=== PATIENT | female | born 1970 | race Caucasian/White ===

== ENCOUNTER 2021-02-25 08:18 | Inpatient (IN) ==
[2021-02-25] MEDS ORDERED: Piperacillin/Tazobactam 3.375 GM in 0.9 % Sodium Chloride Mini Bag 100 ML IVPB ONE (11:05)
[2021-02-25 11:22] LABS: Basophils % 0.5 %; Eosinophils # 0.1 K/mcL (0.0-0.6); Eosinophils % 1.8 %; Hematocrit 31.9 % (35.3-44.9); Hemoglobin 10.8 g/dL (11.5-15.4); Immature Granulocytes % 0.2 % (0-4); Lymphocytes # 2.1 K/mcL (0.6-4.6); Lymphocytes % 37.7 %; Mean Corpuscular HGB Conc 33.9 g/dL (31.6-35.5); Mean Corpuscular Hemoglobin 30.9 pg (28.0-33.3); Mean Corpuscular Volume 91.4 fL (83.0-100.0); Mean Platelet Volume 9.5 fL (9.4-12.4); Monocytes # 0.3 K/mcL (0.0-1.3); Monocytes % 4.5 %; Neutrophils # 3.1 K/mcL (1.6-8.9); Platelet Count 194 K/mcL (140-400); Red Blood Count 3.49 M/mcL (3.82-4.97); Red Cell Distribution Width 14.4 % (11.5-14.5); Segmented Neutrophils % 55.3 %; White Blood Count 5.6 K/mcL (4.3-11.1)
[2021-02-25 11:49] LABS: BUN/Creatinine Ratio 16 (6-26); Blood Urea Nitrogen 10 mg/dL (6-20); Calcium 8.8 mg/dL (8.6-10.3); Carbon Dioxide 27 mEq/L (23-29); Chloride 105 mEq/L (98-107); Glucose 103 mg/dL (70-105); Osmolality,Calculated 283 (280-300); Potassium 3.3 mEq/L (3.5-5.1); Sodium 137 mEq/L (136-145); eGFR For African Americans > 60 (> 60); eGFR For Non-African Americans > 60 (> 60)
[2021-02-25 12:07] LABS: C-Reactive Protein < 5 mg/L (Less than 10)
[2021-02-25] MEDS ORDERED: MOM Conc 10 ML UD.LIQ PO PRN (12:58)
[2021-02-25] MEDS ORDERED: Mag Hydrox/Al Hydrox/Simeth 30 ML UDC PO PRN (12:58)
[2021-02-25] MEDS ORDERED: Naloxone 0.4 MG/ML INJ IVP PRN (12:58)
[2021-02-25] MEDS ORDERED: Gadolinium Contrast Agent (WT Based) IV PRN (13:05)
[2021-02-25] MEDS ORDERED: GADOBUTROL 30 MMOL/30 ML VIAL IVP ONE (13:58)
[2021-02-25] MEDS: Piperacillin/Tazobactam 3.375 GM in 0.9 % Sodium Chloride Mini Bag 100 ML IVPB SCH (20:49)
[2021-02-26] MEDS: Piperacillin/Tazobactam 3.375 GM in 0.9 % Sodium Chloride Mini Bag 100 ML IVPB SCH ×3 (05:03→23:26)
[2021-02-26 08:30] LABS: Hematocrit 33.2 % (35.3-44.9); Mean Corpuscular HGB Conc 33.1 g/dL (31.6-35.5); Mean Corpuscular Hemoglobin 30.6 pg (28.0-33.3); Mean Corpuscular Volume 92.5 fL (83.0-100.0); Mean Platelet Volume 10.1 fL (9.4-12.4); Platelet Count 201 K/mcL (140-400); Red Blood Count 3.59 M/mcL (3.82-4.97); Red Cell Distribution Width 14.3 % (11.5-14.5); White Blood Count 5.8 K/mcL (4.3-11.1)
[2021-02-26 08:46] LABS: BUN/Creatinine Ratio 16 (6-26); Blood Urea Nitrogen 12 mg/dL (6-20); C-Reactive Protein < 5 mg/L (Less than 10); Calcium 9.1 mg/dL (8.6-10.3); Carbon Dioxide 24 mEq/L (23-29); Chloride 107 mEq/L (98-107); Glucose 76 mg/dL (70-105); Osmolality,Calculated 283 (280-300); Potassium 3.7 mEq/L (3.5-5.1); Sodium 137 mEq/L (136-145); eGFR For African Americans > 60 (> 60); eGFR For Non-African Americans > 60 (> 60)
[2021-02-26] MEDS: *HR* Buprenorphine HCl 8 MG TAB.SUBL SL SCH ×2 (15:44→20:18)
[2021-02-27 00:37] LABS: Basophils % 0.3 %; Eosinophils # 0.2 K/mcL (0.0-0.6); Eosinophils % 2.7 %; Hemoglobin 11.2 g/dL (11.5-15.4); Immature Granulocytes % 0.2 % (0-4); Lymphocytes # 2.6 K/mcL (0.6-4.6); Lymphocytes % 41.3 %; Mean Corpuscular HGB Conc 33.9 g/dL (31.6-35.5); Mean Corpuscular Hemoglobin 31.3 pg (28.0-33.3); Mean Corpuscular Volume 92.2 fL (83.0-100.0); Mean Platelet Volume 9.7 fL (9.4-12.4); Monocytes # 0.4 K/mcL (0.0-1.3); Monocytes % 6.7 %; Platelet Count 196 K/mcL (140-400); Red Blood Count 3.58 M/mcL (3.82-4.97); Red Cell Distribution Width 14.5 % (11.5-14.5); Segmented Neutrophils % 48.8 %; White Blood Count 6.2 K/mcL (4.3-11.1)
[2021-02-27 00:51] LABS: BUN/Creatinine Ratio 17 (6-26); Blood Urea Nitrogen 14 mg/dL (6-20); Calcium 8.6 mg/dL (8.6-10.3); Carbon Dioxide 27 mEq/L (23-29); Chloride 103 mEq/L (98-107); Glucose 130 mg/dL (70-105); Osmolality,Calculated 284 (280-300); Potassium 3.4 mEq/L (3.5-5.1); Sodium 136 mEq/L (136-145); eGFR For African Americans > 60 (> 60); eGFR For Non-African Americans > 60 (> 60)
[2021-02-27] MEDS: *HR* Enoxaparin 40 MG/0.4 ML SYRINGE SQ SCH (05:24)
[2021-02-27] MEDS ORDERED: *HR* OxyCODONE Immed Rel 15 MG TABLET PO ONE (05:40)
[2021-02-27] MEDS: *HR* Buprenorphine HCl 8 MG TAB.SUBL SL SCH ×2 (08:58→20:52)
[2021-02-27] MEDS: Piperacillin/Tazobactam 3.375 GM in 0.9 % Sodium Chloride Mini Bag 100 ML IVPB SCH ×2 (08:58→16:43)
[2021-02-27] MEDS: Ondansetron ODT 4 MG TAB.RAPDIS SL PRN (14:49)
[2021-02-27] MEDS ORDERED: Acetaminophen 325 MG TABLET PO ONE (15:29)
[2021-02-28] MEDS: Piperacillin/Tazobactam 3.375 GM in 0.9 % Sodium Chloride Mini Bag 100 ML IVPB SCH ×2 (01:48→08:14)
[2021-02-28 06:02] LABS: Basophils % 0.4 %; Eosinophils # 0.2 K/mcL (0.0-0.6); Eosinophils % 2.9 %; Hematocrit 33.1 % (35.3-44.9); Hemoglobin 10.7 g/dL (11.5-15.4); Immature Granulocytes % 0.2 % (0-4); Lymphocytes # 2.7 K/mcL (0.6-4.6); Lymphocytes % 48.7 %; Mean Corpuscular HGB Conc 32.3 g/dL (31.6-35.5); Mean Corpuscular Hemoglobin 30.1 pg (28.0-33.3); Mean Corpuscular Volume 93.2 fL (83.0-100.0); Mean Platelet Volume 9.9 fL (9.4-12.4); Monocytes # 0.5 K/mcL (0.0-1.3); Monocytes % 9.5 %; Neutrophils # 2.2 K/mcL (1.6-8.9); Platelet Count 186 K/mcL (140-400); Red Blood Count 3.55 M/mcL (3.82-4.97); Red Cell Distribution Width 14.2 % (11.5-14.5); Segmented Neutrophils % 38.3 %; White Blood Count 5.6 K/mcL (4.3-11.1)
[2021-02-28 06:16] LABS: BUN/Creatinine Ratio 19 (6-26); Blood Urea Nitrogen 17 mg/dL (6-20); Calcium 8.5 mg/dL (8.6-10.3); Carbon Dioxide 25 mEq/L (23-29); Chloride 106 mEq/L (98-107); Glucose 96 mg/dL (70-105); Osmolality,Calculated 283 (280-300); Potassium 4.2 mEq/L (3.5-5.1); Sodium 136 mEq/L (136-145); eGFR For African Americans > 60 (> 60); eGFR For Non-African Americans > 60 (> 60)
[2021-02-28] MEDS: *HR* Enoxaparin 40 MG/0.4 ML SYRINGE SQ SCH (06:46)
[2021-02-28] MEDS: *HR* Buprenorphine HCl 8 MG TAB.SUBL SL SCH ×2 (08:14→21:10)
[2021-02-28] MEDS: Ertapenem 1,000 MG in 0.9 % Sodium Chloride Mini Bag 100 ML IVPB SCH (15:19)
[2021-02-28 21:33] LABS: Barbiturates NEGATIVE ng/mL (Cutoff 50); Benzodiazepines NEGATIVE ng/mL (Cutoff 50); Cocaine NEGATIVE ng/mL (Cutoff 20); Methadone NEGATIVE ng/mL (Cutoff 25); Opiates NEGATIVE ng/mL (Cutoff 20); Phencyclidine NEGATIVE ng/mL (Cutoff 10)
[2021-03-01] MEDS: *HR* Enoxaparin 40 MG/0.4 ML SYRINGE SQ SCH (05:52)
[2021-03-01 06:31] LABS: Basophils % 0.4 %; Eosinophils # 0.2 K/mcL (0.0-0.6); Eosinophils % 3.4 %; Hematocrit 34.2 % (35.3-44.9); Hemoglobin 11.4 g/dL (11.5-15.4); Immature Granulocytes % 0.3 % (0-4); Lymphocytes # 3.4 K/mcL (0.6-4.6); Lymphocytes % 50.7 %; Mean Corpuscular HGB Conc 33.3 g/dL (31.6-35.5); Mean Corpuscular Hemoglobin 31.2 pg (28.0-33.3); Mean Corpuscular Volume 93.7 fL (83.0-100.0); Monocytes # 0.5 K/mcL (0.0-1.3); Monocytes % 7.8 %; Neutrophils # 2.5 K/mcL (1.6-8.9); Platelet Count 230 K/mcL (140-400); Red Blood Count 3.65 M/mcL (3.82-4.97); Red Cell Distribution Width 14.2 % (11.5-14.5); Segmented Neutrophils % 37.4 %; White Blood Count 6.7 K/mcL (4.3-11.1)
[2021-03-01 06:53] LABS: BUN/Creatinine Ratio 22 (6-26); Blood Urea Nitrogen 17 mg/dL (6-20); Carbon Dioxide 23 mEq/L (23-29); Chloride 105 mEq/L (98-107); Glucose 94 mg/dL (70-105); Osmolality,Calculated 281 (280-300); Potassium 4.3 mEq/L (3.5-5.1); Sodium 135 mEq/L (136-145); eGFR For African Americans > 60 (> 60); eGFR For Non-African Americans > 60 (> 60)
[2021-03-01 08:13] LABS: Amphetamines POSITIVE ng/mL (Cutoff 20); Buprenorphine POSITIVE ng/mL (Cutoff 1); Methamphetamines POSITIVE ng/mL (Cutoff 20)
[2021-03-01] MEDS: *HR* Buprenorphine HCl 8 MG TAB.SUBL SL SCH ×2 (08:13→21:14)
[2021-03-01 08:37] LABS: Amphetamine Screen,Urine Negative ng/mL (Cutoff=1000); Barbiturate Screen,Urine Negative ng/mL (Cutoff=200); Benzodiazepines Screen,Urine Negative ng/mL (Cutoff=300); Cannabinoid Screen,Urine Positive ng/mL (Cutoff = 50); Cocaine Screen,Urine Negative ng/mL (Cutoff= 300); Opiate Screen,Urine Negative ng/mL (Cutoff=300); Phencyclidine Screen,Urine Negative ng/mL (Cutoff=25)
[2021-03-01] MEDS: Ertapenem 1,000 MG in 0.9 % Sodium Chloride Mini Bag 100 ML IVPB SCH (15:43)
[2021-03-02] MEDS: *HR* Enoxaparin 40 MG/0.4 ML SYRINGE SQ SCH (05:47)
[2021-03-02 07:06] LABS: BUN/Creatinine Ratio 24 (6-26); Blood Urea Nitrogen 18 mg/dL (6-20); Calcium 8.6 mg/dL (8.6-10.3); Carbon Dioxide 27 mEq/L (23-29); Chloride 106 mEq/L (98-107); Glucose 94 mg/dL (70-105); Osmolality,Calculated 286 (280-300); Sodium 137 mEq/L (136-145); eGFR For African Americans > 60 (> 60); eGFR For Non-African Americans > 60 (> 60)
[2021-03-02] MEDS: *HR* Buprenorphine HCl 8 MG TAB.SUBL SL SCH ×2 (08:47→20:09)
[2021-03-02] MEDS: Ertapenem 1,000 MG in 0.9 % Sodium Chloride Mini Bag 100 ML IVPB SCH (16:13)
[2021-03-03 01:57] LABS: Basophils % 0.5 %; Eosinophils # 0.2 K/mcL (0.0-0.6); Eosinophils % 3.9 %; Immature Granulocytes % 0.2 % (0-4); Lymphocytes # 2.8 K/mcL (0.6-4.6); Lymphocytes % 47.3 %; Mean Corpuscular HGB Conc 32.4 g/dL (31.6-35.5); Mean Corpuscular Hemoglobin 30.6 pg (28.0-33.3); Mean Corpuscular Volume 94.7 fL (83.0-100.0); Mean Platelet Volume 9.6 fL (9.4-12.4); Monocytes # 0.5 K/mcL (0.0-1.3); Monocytes % 8.9 %; Neutrophils # 2.3 K/mcL (1.6-8.9); Platelet Count 223 K/mcL (140-400); Red Blood Count 3.59 M/mcL (3.82-4.97); Red Cell Distribution Width 14.1 % (11.5-14.5); Segmented Neutrophils % 39.2 %; White Blood Count 5.9 K/mcL (4.3-11.1)
[2021-03-03 02:12] LABS: BUN/Creatinine Ratio 18 (6-26); Blood Urea Nitrogen 17 mg/dL (6-20); Calcium 8.7 mg/dL (8.6-10.3); Carbon Dioxide 24 mEq/L (23-29); Chloride 104 mEq/L (98-107); Glucose 100 mg/dL (70-105); Osmolality,Calculated 286 (280-300); Potassium 3.7 mEq/L (3.5-5.1); Sodium 137 mEq/L (136-145); eGFR For African Americans > 60 (> 60); eGFR For Non-African Americans > 60 (> 60)
[2021-03-03] MEDS: *HR* Enoxaparin 40 MG/0.4 ML SYRINGE SQ SCH (07:50)
[2021-03-03] MEDS: *HR* Buprenorphine HCl 8 MG TAB.SUBL SL SCH ×2 (08:17→21:52)
[2021-03-03] MEDS: levoFLOXacin 750 MG/150 ML 750 MG/150 ML BAG IVPB SCH (15:18)
[2021-03-03] MEDS ORDERED: Lidocaine -MPF 1% 5 ML AMPUL INFILT ONE (18:25)
[2021-03-04] MEDS: Melatonin 3 MG TABLET PO PRN (05:11)
[2021-03-04] MEDS: *HR* Enoxaparin 40 MG/0.4 ML SYRINGE SQ SCH (05:12)
[2021-03-04] MEDS: *HR* Buprenorphine HCl 8 MG TAB.SUBL SL SCH ×2 (09:56→20:04)
[2021-03-04 13:14] LABS: Methylenedioxyamphetamine <20 ng/mL; Methylenedioxymethamphetamine <20 ng/mL
[2021-03-04] MEDS: levoFLOXacin 750 MG/150 ML 750 MG/150 ML BAG IVPB SCH (15:22)
[2021-03-04 15:50] LABS: Methamphetamine Confirmation 380 ng/mL; Methylenedioxyethylamphetamine <20 ng/mL
[2021-03-05] MEDS: Melatonin 3 MG TABLET PO PRN (00:48)
[2021-03-05] MEDS: Ondansetron ODT 4 MG TAB.RAPDIS SL PRN (00:48)
[2021-03-05 03:57] LABS: Basophils % 0.4 %; Eosinophils # 0.2 K/mcL (0.0-0.6); Hemoglobin 10.3 g/dL (11.5-15.4); Immature Granulocytes % 0.4 % (0-4); Lymphocytes # 1.8 K/mcL (0.6-4.6); Lymphocytes % 36.5 %; Mean Corpuscular HGB Conc 32.2 g/dL (31.6-35.5); Mean Corpuscular Volume 93.3 fL (83.0-100.0); Mean Platelet Volume 9.3 fL (9.4-12.4); Monocytes # 0.5 K/mcL (0.0-1.3); Monocytes % 10.6 %; Neutrophils # 2.3 K/mcL (1.6-8.9); Platelet Count 181 K/mcL (140-400); Red Blood Count 3.43 M/mcL (3.82-4.97); Red Cell Distribution Width 14.2 % (11.5-14.5); Segmented Neutrophils % 47.1 %; White Blood Count 4.8 K/mcL (4.3-11.1)
[2021-03-05 04:22] LABS: BUN/Creatinine Ratio 23 (6-26); Blood Urea Nitrogen 18 mg/dL (6-20); Calcium 8.8 mg/dL (8.6-10.3); Carbon Dioxide 25 mEq/L (23-29); Chloride 104 mEq/L (98-107); Glucose 95 mg/dL (70-105); Osmolality,Calculated 282 (280-300); Sodium 135 mEq/L (136-145); Vancomycin,Trough 33 mcg/mL (5-10); eGFR For African Americans > 60 (> 60); eGFR For Non-African Americans > 60 (> 60)
[2021-03-05] MEDS: *HR* Enoxaparin 40 MG/0.4 ML SYRINGE SQ SCH (06:13)
[2021-03-05] MEDS: *HR* Buprenorphine HCl 8 MG TAB.SUBL SL SCH (09:35)
[2021-03-05] MEDS ORDERED: Ertapenem 1,000 MG in 0.9 % Sodium Chloride Mini Bag 100 ML IVPB SCH (11:00)
[2021-03-05 16:50] LABS: Adenovirus Not Detected (Not Detect); Coronavirus 229E Not Detected (Not Detect); Coronavirus HKU1 Not Detected (Not Detect); Coronavirus NL63 Not Detected (Not Detect); Coronavirus OC43 Not Detected (Not Detect); Human Metapneumovirus Not Detected (Not Detect); Human Rhinovirus/Enterovirus Not Detected (Not Detect); Influenza A Subtype 2009 H1 Not Detected (Not Detect); SARS-CoV-2 Not Detected (Not Detect)
[2021-03-05 16:51] LABS: Bordetella Pertussis Not Detected (Not Detect); Chlamydophila pneumoniae Not Detected (Not Detect); Influenza B Not Detected (Not Detect); Mycoplasma pneumoniae Not Detected (Not Detect); Parainfluenza Virus 1 Not Detected (Not Detect); Parainfluenza Virus 2 Not Detected (Not Detect); Parainfluenza Virus 3 Not Detected (Not Detect); Parainfluenza Virus 4 Not Detected (Not Detect); Respiratory Syncytial Virus Not Detected (Not Detect)
[2021-03-05 17:16] LABS: Norbuprenorphine 4.3 ng/mL
[2021-03-05 17:35] LABS: Buprenorphine 2.5 ng/mL
[2021-03-05 20:00] VITALS: BP 124/82; PULSE 97; TEMP 97.6; O2SAT 94
== END 2021-03-05 20:15 | DRG 320 ==
LOC: EMEROOARM 08:18 → 3ANU 08:18 → SUATTDRO 13:00 → 3ANU 14:19 → SUATTDRO 02-26 11:46
PROVIDERS: ADMIT Pharmacist; ATTEND Family Medicine

== ENCOUNTER 2021-03-20 12:05 | Inpatient (IN) ==
[2021-03-20] MEDS ORDERED: Naloxone 0.4 MG/ML INJ IVP PRN (15:51)
[2021-03-20] MEDS ORDERED: Ondansetron 4 MG/2 ML VIAL IVP PRN (15:51)
[2021-03-20] MEDS ORDERED: Nicotine 2 MG GUM BC PRN (15:53)
[2021-03-20] MEDS ORDERED: MethylPREDNISolone 40 MG/ML VIAL IVP ONE (15:54)
[2021-03-20] MEDS ORDERED: Cetaphil Lotion 473 ML BOTTLE TP PRN (15:55)
[2021-03-20] MEDS ORDERED: 0.9 % Sodium Chloride 1,000 ML IVC SCH (16:00)
[2021-03-20] MEDS: Ertapenem 1,000 MG in 0.9 % Sodium Chloride Mini Bag 100 ML IVPB SCH (16:25)
[2021-03-20] MEDS: Nicotine 21 MG PATCH.TD24 TD SCH (16:32)
[2021-03-20] MEDS: DAPTOmycin 300 MG in 0.9 % Sodium Chloride 100 ML IVPB SCH (17:42)
[2021-03-20] MEDS: *HR* Buprenorphine HCl 8 MG TAB.SUBL SL SCH (19:59)
[2021-03-21] MEDS: Ammonium Lactate 30 APPL/225 GM BOTTLE TP PRN ×2 (04:29→17:12)
[2021-03-21] MEDS: *HR* Enoxaparin 40 MG/0.4 ML SYRINGE SQ SCH (05:22)
[2021-03-21 07:09] LABS: Basophils % 0.7 %; Eosinophils % 2.2 %; Hematocrit 30.2 % (35.3-44.9); Hemoglobin 10.1 g/dL (11.5-15.4); Immature Granulocytes % 0.7 % (0-4); Lymphocytes # 0.7 K/mcL (0.6-4.6); Lymphocytes % 51.8 %; Mean Corpuscular HGB Conc 33.4 g/dL (31.6-35.5); Mean Corpuscular Hemoglobin 30.1 pg (28.0-33.3); Mean Corpuscular Volume 90.1 fL (83.0-100.0); Monocytes # 0.1 K/mcL (0.0-1.3); Monocytes % 8.6 %; Neutrophils # 0.5 K/mcL (1.6-8.9); Platelet Count 192 K/mcL (140-400); Red Blood Count 3.35 M/mcL (3.82-4.97); Red Cell Distribution Width 14.8 % (11.5-14.5); White Blood Count 1.4 K/mcL (4.3-11.1)
[2021-03-21 07:25] LABS: Anisocytosis 1+ (Not Present); Platelet Estimate Normal (Normal)
[2021-03-21 07:28] LABS: Alanine Aminotransferase 25 Units/L (7-52); Albumin 3.2 g/dL (3.5-5.7); Albumin/Globulin Ratio 0.8 (1.1-2.2); Alkaline Phosphatase 26 Units/L (34-104); Aspartate Amino Transferase 33 Units/L (13-39); BUN/Creatinine Ratio 20 (6-26); Bilirubin,Total 0.3 mg/dL (0.3-1.0); Blood Urea Nitrogen 11 mg/dL (6-20); Calcium 8.5 mg/dL (8.6-10.3); Carbon Dioxide 20 mEq/L (23-29); Chloride 110 mEq/L (98-107); Creatine Kinase 125 Units/L (30-223); Globulin 3.9 g/dL (2.4-3.5); Glucose 120 mg/dL (70-105); Magnesium 1.9 mg/dL (1.6-2.6); Osmolality,Calculated 287 (280-300); Phosphorous 3.6 mg/dL (2.7-4.5); Sodium 138 mEq/L (136-145); Total Protein 7.1 g/dL (6.4-8.9); eGFR For African Americans > 60 (> 60); eGFR For Non-African Americans > 60 (> 60)
[2021-03-21] MEDS: *HR* Buprenorphine HCl 8 MG TAB.SUBL SL SCH ×2 (08:31→20:32)
[2021-03-21] MEDS: predniSONE 20 MG TABLET PO SCH (08:31)
[2021-03-21] MEDS: Nicotine 21 MG PATCH.TD24 TD SCH (08:33)
[2021-03-21] MEDS: Ertapenem 1,000 MG in 0.9 % Sodium Chloride Mini Bag 100 ML IVPB SCH (08:33)
[2021-03-21 09:57] LABS: C-Reactive Protein 13 mg/L (Less than 10)
[2021-03-21] MEDS: DAPTOmycin 300 MG in 0.9 % Sodium Chloride 100 ML IVPB SCH (17:06)
[2021-03-22] MEDS ORDERED: DiphenhydraMINE CREAM 28.4 GM TUBE TP PRN (03:40)
[2021-03-22] MEDS: *HR* Enoxaparin 40 MG/0.4 ML SYRINGE SQ SCH (04:48)
[2021-03-22 07:14] LABS: Hematocrit 29.7 % (35.3-44.9); Mean Corpuscular HGB Conc 33.7 g/dL (31.6-35.5); Mean Corpuscular Hemoglobin 30.7 pg (28.0-33.3); Mean Corpuscular Volume 91.1 fL (83.0-100.0); Mean Platelet Volume 11.7 fL (9.4-12.4); Platelet Count 152 K/mcL (140-400); Red Blood Count 3.26 M/mcL (3.82-4.97)
[2021-03-22 07:39] LABS: White Blood Count 4.6 K/mcL (4.3-11.1)
[2021-03-22 08:15] LABS: Eosinophils # 0.1 K/mcL (0.0-0.6); Monocytes # 0.5 K/mcL (0.0-1.3); Neutrophils # 1.8 K/mcL (1.6-8.9)
[2021-03-22 08:16] LABS: Anisocytosis 1+ (Not Present); Platelet Estimate Normal (Normal)
[2021-03-22] MEDS: predniSONE 20 MG TABLET PO SCH (08:16)
[2021-03-22] MEDS: *HR* Buprenorphine HCl 8 MG TAB.SUBL SL SCH ×2 (08:17→22:26)
[2021-03-22] MEDS: Ertapenem 1,000 MG in 0.9 % Sodium Chloride Mini Bag 100 ML IVPB SCH (08:18)
[2021-03-22] MEDS: Famotidine 20 MG TABLET PO SCH ×2 (08:18→22:26)
[2021-03-22] MEDS: Nicotine 21 MG PATCH.TD24 TD SCH (08:18)
[2021-03-22 14:13] LABS: BUN/Creatinine Ratio 30 (6-26); Blood Urea Nitrogen 19 mg/dL (6-20); Calcium 8.6 mg/dL (8.6-10.3); Carbon Dioxide 18 mEq/L (23-29); Chloride 111 mEq/L (98-107); Glucose 95 mg/dL (70-105); Osmolality,Calculated 292 (280-300); Potassium 3.7 mEq/L (3.5-5.1); Sodium 140 mEq/L (136-145); eGFR For African Americans > 60 (> 60); eGFR For Non-African Americans > 60 (> 60)
[2021-03-22 15:07] LABS: Hepatitis B Surface Antigen Nonreactive (Nonreactive)
[2021-03-22 15:36] LABS: HIV-1&2 Antibody & p24 Ag Nonreactive (Nonreactive); Hepatitis B Core IgM Nonreactive (Nonreactive)
[2021-03-22 15:38] LABS: Hepatitis A Antibody IgM Nonreactive (Nonreactive)
[2021-03-22 16:51] LABS: Hepatitis C Virus Antibody Reactive (Nonreactive)
[2021-03-22] MEDS: DAPTOmycin 300 MG in 0.9 % Sodium Chloride 100 ML IVPB SCH (17:53)
[2021-03-23 03:57] LABS: Basophils # 0.1 K/mcL (0.0-0.2); Eosinophils # 0.2 K/mcL (0.0-0.6); Hematocrit 30.9 % (35.3-44.9); Hemoglobin 9.7 g/dL (11.5-15.4); Immature Granulocytes % 0.2 % (0-4); Lymphocytes # 1.7 K/mcL (0.6-4.6); Lymphocytes % 36.2 %; Mean Corpuscular HGB Conc 31.4 g/dL (31.6-35.5); Mean Corpuscular Hemoglobin 29.3 pg (28.0-33.3); Mean Corpuscular Volume 93.4 fL (83.0-100.0); Mean Platelet Volume 10.2 fL (9.4-12.4); Monocytes # 0.5 K/mcL (0.0-1.3); Monocytes % 10.7 %; Neutrophils # 2.3 K/mcL (1.6-8.9); Platelet Count 203 K/mcL (140-400); Red Blood Count 3.31 M/mcL (3.82-4.97); Red Cell Distribution Width 14.9 % (11.5-14.5); Segmented Neutrophils % 47.9 %; White Blood Count 4.8 K/mcL (4.3-11.1)
[2021-03-23 04:11] LABS: BUN/Creatinine Ratio 25 (6-26); Blood Urea Nitrogen 18 mg/dL (6-20); Calcium 8.8 mg/dL (8.6-10.3); Carbon Dioxide 21 mEq/L (23-29); Chloride 108 mEq/L (98-107); Glucose 82 mg/dL (70-105); Osmolality,Calculated 289 (280-300); Potassium 3.9 mEq/L (3.5-5.1); Sodium 139 mEq/L (136-145); eGFR For African Americans > 60 (> 60); eGFR For Non-African Americans > 60 (> 60)
[2021-03-23 04:21] LABS: Anisocytosis 1+ (Not Present); Hypochromasia Present (Not Present); Platelet Estimate Normal (Normal); Reactive Lymphocytes Present (Not Present)
[2021-03-23 04:26] LABS: Estimated Average Glucose 131 mg/dl; Hemoglobin A1C 6.2 %
[2021-03-23] MEDS: *HR* Enoxaparin 40 MG/0.4 ML SYRINGE SQ SCH (06:37)
[2021-03-23] MEDS: Ertapenem 1,000 MG in 0.9 % Sodium Chloride Mini Bag 100 ML IVPB SCH (08:54)
[2021-03-23] MEDS: Famotidine 20 MG TABLET PO SCH ×2 (08:54→21:03)
[2021-03-23] MEDS: *HR* Buprenorphine HCl 8 MG TAB.SUBL SL SCH ×3 (08:54→22:10)
[2021-03-23] MEDS ORDERED: predniSONE 20 MG TABLET PO SCH (09:00)
[2021-03-23] MEDS: Nicotine 21 MG PATCH.TD24 TD SCH (09:19)
[2021-03-23] MEDS ORDERED: *HR* LORazepam 2 MG/ML VIAL IVP ONE ×2 (10:22→13:45)
[2021-03-23] MEDS ORDERED: 0.9 % Sodium Chloride 1,000 ML IVC ONE (14:04)
[2021-03-23] MEDS ORDERED: Gabapentin 300 MG CAPSULE PO ONE (14:52)
[2021-03-23] MEDS ORDERED: diazePAM 2 MG TABLET PO ONE (14:53)
[2021-03-23 15:04] LABS: Amphetamine Screen,Urine Negative ng/mL (Cutoff=1000); Barbiturate Screen,Urine Negative ng/mL (Cutoff=200); Benzodiazepines Screen,Urine Negative ng/mL (Cutoff=200); Cannabinoid Screen,Urine Positive ng/mL (Cutoff = 50); Cocaine Screen,Urine Negative ng/mL (Cutoff= 300); Opiate Screen,Urine Negative ng/mL (Cutoff=300); Phencyclidine Screen,Urine Negative ng/mL (Cutoff=25)
[2021-03-23] MEDS ORDERED: QUEtiapine Fumarate 25 MG TABLET PO STA (16:48)
[2021-03-23] MEDS ORDERED: Haloperidol Lactate 5 MG/ML VIAL IVP ONE (16:55)
[2021-03-23] MEDS ORDERED: Haloperidol Lactate 5 MG/ML VIAL IM ONE ×2 (17:04→23:59)
[2021-03-23] MEDS: DAPTOmycin 300 MG in 0.9 % Sodium Chloride 100 ML IVPB SCH (18:03)
[2021-03-23] MEDS ORDERED: Ziprasidone 10 MG, Closed System Device IM Kit 1 EACH in Water for inj. (sterile) 0.5 ML IM ONE (18:48)
[2021-03-23] MEDS ORDERED: *HR* HYDROmorphone (PF) 1 MG/ML SYRINGE IVP ONE ×2 (18:54→22:01)
[2021-03-23] MEDS ORDERED: Water for inj. (sterile) 10 ML ONE (19:05)
[2021-03-23] MEDS ORDERED: diazePAM 10 MG/2 ML SYRINGE IVP STA (19:46)
[2021-03-23] MEDS ORDERED: Melatonin 3 MG TABLET PO SCH (21:00)
[2021-03-23] MEDS ORDERED: QUEtiapine Fumarate 25 MG TABLET PO SCH (21:00)
[2021-03-23] MEDS ORDERED: *HR* LORazepam 2 MG/ML VIAL IVP STA (22:01)
[2021-03-23] MEDS: Budesonide/Formoterol 160/4.5 1 PUFF INH IH SCH ×2 (22:47→22:50)
[2021-03-23] MEDS ORDERED: diazePAM 10 MG/2 ML SYRINGE IVP ONE (23:57)
[2021-03-24 08:16] LABS: BUN/Creatinine Ratio 29 (6-26); Blood Urea Nitrogen 18 mg/dL (6-20); Calcium 8.2 mg/dL (8.6-10.3); Carbon Dioxide 25 mEq/L (23-29); Chloride 111 mEq/L (98-107); Glucose 87 mg/dL (70-105); Osmolality,Calculated 295 (280-300); Sodium 142 mEq/L (136-145); eGFR For African Americans > 60 (> 60); eGFR For Non-African Americans > 60 (> 60)
[2021-03-24] MEDS: Famotidine 20 MG TABLET PO SCH ×2 (09:59→21:02)
[2021-03-24] MEDS: *HR* Buprenorphine HCl 8 MG TAB.SUBL SL SCH ×2 (09:59→21:02)
[2021-03-24] MEDS: Ertapenem 1,000 MG in 0.9 % Sodium Chloride Mini Bag 100 ML IVPB SCH (10:00)
[2021-03-24] MEDS: Nicotine 21 MG PATCH.TD24 TD SCH (10:00)
[2021-03-24] MEDS ORDERED: Potassium Chloride Elixir 20 MEQ/15 ML UDC PO ONE (11:41)
[2021-03-24] MEDS: Ammonium Lactate 30 APPL/225 GM BOTTLE TP PRN (12:22)
[2021-03-24] MEDS: Budesonide/Formoterol 160/4.5 1 PUFF INH IH SCH ×2 (18:12→20:20)
[2021-03-24] MEDS: DAPTOmycin 300 MG in 0.9 % Sodium Chloride 100 ML IVPB SCH (18:12)
[2021-03-25] MEDS: 0.9 % Sodium Chloride 1,000 ML IVC SCH ×2 (03:03→09:11)
[2021-03-25 04:36] LABS: Basophils % 0.6 %; Eosinophils # 0.4 K/mcL (0.0-0.6); Eosinophils % 7.1 %; Hematocrit 35.4 % (35.3-44.9); Hemoglobin 11.7 g/dL (11.5-15.4); Immature Granulocytes % 0.9 % (0-4); Lymphocytes # 1.3 K/mcL (0.6-4.6); Mean Corpuscular HGB Conc 33.1 g/dL (31.6-35.5); Mean Corpuscular Hemoglobin 30.5 pg (28.0-33.3); Mean Corpuscular Volume 92.4 fL (83.0-100.0); Monocytes # 0.3 K/mcL (0.0-1.3); Monocytes % 4.9 %; Neutrophils # 3.3 K/mcL (1.6-8.9); Nucleated Red Blood Cells 0.4 /100 WBC (0); Platelet Count 252 K/mcL (140-400); Red Blood Count 3.83 M/mcL (3.82-4.97); Red Cell Distribution Width 15.2 % (11.5-14.5); Segmented Neutrophils % 62.5 %; White Blood Count 5.3 K/mcL (4.3-11.1)
[2021-03-25 04:47] LABS: BUN/Creatinine Ratio 19 (6-26); Blood Urea Nitrogen 16 mg/dL (6-20); Calcium 7.5 mg/dL (8.6-10.3); Carbon Dioxide 20 mEq/L (23-29); Chloride 107 mEq/L (98-107); Glucose 84 mg/dL (70-105); Osmolality,Calculated 284 (280-300); Potassium 3.7 mEq/L (3.5-5.1); Sodium 137 mEq/L (136-145); eGFR For African Americans > 60 (> 60); eGFR For Non-African Americans > 60 (> 60)
[2021-03-25] MEDS: Famotidine 20 MG TABLET PO SCH ×2 (09:05→20:54)
[2021-03-25] MEDS: Magnesium Oxide 400 MG TABLET PO SCH (09:05)
[2021-03-25] MEDS: Nicotine 21 MG PATCH.TD24 TD SCH (09:05)
[2021-03-25] MEDS: *HR* Buprenorphine HCl 8 MG TAB.SUBL SL SCH ×2 (09:05→20:54)
[2021-03-25] MEDS: Ertapenem 1,000 MG in 0.9 % Sodium Chloride Mini Bag 100 ML IVPB SCH (09:05)
[2021-03-25] MEDS: Budesonide/Formoterol 160/4.5 1 PUFF INH IH SCH (11:43)
[2021-03-25] MEDS: DAPTOmycin 300 MG in 0.9 % Sodium Chloride 100 ML IVPB SCH (17:32)
[2021-03-26] MEDS ORDERED: Ringers Solution, Lactated 500 ML IVC ONE (00:15)
[2021-03-26] MEDS: Budesonide/Formoterol 160/4.5 1 PUFF INH IH SCH ×3 (02:30→23:53)
[2021-03-26] MEDS: QUEtiapine Fumarate 25 MG TABLET PO PRN ×2 (03:36→19:59)
[2021-03-26 05:59] LABS: Basophils % 0.2 %; Eosinophils # 0.4 K/mcL (0.0-0.6); Eosinophils % 7.4 %; Hematocrit 31.4 % (35.3-44.9); Hemoglobin 10.6 g/dL (11.5-15.4); Immature Granulocytes % 1.7 % (0-4); Lymphocytes % 28.2 %; Mean Corpuscular HGB Conc 33.8 g/dL (31.6-35.5); Mean Corpuscular Hemoglobin 30.4 pg (28.0-33.3); Mean Platelet Volume 8.7 fL (9.4-12.4); Monocytes # 0.2 K/mcL (0.0-1.3); Monocytes % 3.6 %; Neutrophils # 2.8 K/mcL (1.6-8.9); Platelet Count 159 K/mcL (140-400); Red Blood Count 3.49 M/mcL (3.82-4.97); Segmented Neutrophils % 58.9 %; White Blood Count 4.8 K/mcL (4.3-11.1)
[2021-03-26 06:01] LABS: Lymphocytes # 1.4 K/mcL (0.6-4.6)
[2021-03-26 06:14] LABS: BUN/Creatinine Ratio 20 (6-26); Blood Urea Nitrogen 16 mg/dL (6-20); Calcium 7.6 mg/dL (8.6-10.3); Carbon Dioxide 24 mEq/L (23-29); Chloride 105 mEq/L (98-107); Glucose 118 mg/dL (70-105); Magnesium 2.1 mg/dL (1.6-2.6); Osmolality,Calculated 282 (280-300); Potassium 3.4 mEq/L (3.5-5.1); Sodium 135 mEq/L (136-145); eGFR For African Americans > 60 (> 60); eGFR For Non-African Americans > 60 (> 60)
[2021-03-26 06:26] LABS: Thyroid Stimulating Hormone 2.363 mcIU/mL (0.340-5.600)
[2021-03-26 06:28] LABS: Platelet Estimate Normal (Normal)
[2021-03-26] MEDS: Famotidine 20 MG TABLET PO SCH ×2 (09:25→19:59)
[2021-03-26] MEDS: Ertapenem 1,000 MG in 0.9 % Sodium Chloride Mini Bag 100 ML IVPB SCH (09:25)
[2021-03-26] MEDS: Nicotine 21 MG PATCH.TD24 TD SCH (09:25)
[2021-03-26] MEDS: *HR* Buprenorphine HCl 8 MG TAB.SUBL SL SCH ×2 (09:25→19:59)
[2021-03-26] MEDS: Magnesium Oxide 400 MG TABLET PO SCH (09:25)
[2021-03-26] MEDS: Clobetasol Propionate 0.05% 15 GM Cream Tube TP SCH ×2 (14:40→20:01)
[2021-03-26] MEDS: DAPTOmycin 300 MG in 0.9 % Sodium Chloride 100 ML IVPB SCH (18:09)
[2021-03-27 06:09] LABS: Basophils # 0.1 K/mcL (0.0-0.2); Basophils % 0.9 %; Eosinophils # 0.7 K/mcL (0.0-0.6); Eosinophils % 8.4 %; Hematocrit 31.3 % (35.3-44.9); Hemoglobin 10.6 g/dL (11.5-15.4); Immature Granulocytes % 1.2 % (0-4); Lymphocytes # 3.7 K/mcL (0.6-4.6); Lymphocytes % 45.1 %; Mean Corpuscular HGB Conc 33.9 g/dL (31.6-35.5); Mean Corpuscular Volume 88.7 fL (83.0-100.0); Mean Platelet Volume 10.4 fL (9.4-12.4); Monocytes # 0.4 K/mcL (0.0-1.3); Monocytes % 5.2 %; Neutrophils # 3.2 K/mcL (1.6-8.9); Platelet Count 155 K/mcL (140-400); Red Blood Count 3.53 M/mcL (3.82-4.97); Segmented Neutrophils % 39.2 %; White Blood Count 8.1 K/mcL (4.3-11.1)
[2021-03-27 06:40] LABS: Alanine Aminotransferase 21 Units/L (7-52); Alkaline Phosphatase 31 Units/L (34-104); Aspartate Amino Transferase 17 Units/L (13-39); BUN/Creatinine Ratio 21 (6-26); Bilirubin,Total 0.4 mg/dL (0.3-1.0); Blood Urea Nitrogen 14 mg/dL (6-20); Calcium 7.9 mg/dL (8.6-10.3); Carbon Dioxide 24 mEq/L (23-29); Chloride 102 mEq/L (98-107); Glucose 131 mg/dL (70-105); Magnesium 1.8 mg/dL (1.6-2.6); Osmolality,Calculated 278 (280-300); Potassium 4.5 mEq/L (3.5-5.1); Sodium 133 mEq/L (136-145); eGFR For African Americans > 60 (> 60); eGFR For Non-African Americans > 60 (> 60)
[2021-03-27] MEDS: Ertapenem 1,000 MG in 0.9 % Sodium Chloride Mini Bag 100 ML IVPB SCH (09:20)
[2021-03-27] MEDS: *HR* Buprenorphine HCl 8 MG TAB.SUBL SL SCH ×2 (09:21→20:02)
[2021-03-27] MEDS: Magnesium Oxide 400 MG TABLET PO SCH (09:21)
[2021-03-27] MEDS: Famotidine 20 MG TABLET PO SCH ×2 (09:21→20:02)
[2021-03-27] MEDS: Nicotine 21 MG PATCH.TD24 TD SCH (09:22)
[2021-03-27] MEDS: Clobetasol Propionate 0.05% 15 GM Cream Tube TP SCH ×2 (09:23→20:04)
[2021-03-27] MEDS ORDERED: predniSONE 10 MG TABLET PO ONE (11:14)
[2021-03-27] MEDS: Budesonide/Formoterol 160/4.5 1 PUFF INH IH SCH (11:43)
[2021-03-27] MEDS: DAPTOmycin 300 MG in 0.9 % Sodium Chloride 100 ML IVPB SCH (18:08)
[2021-03-27] MEDS: QUEtiapine Fumarate 25 MG TABLET PO PRN (20:02)
[2021-03-28] MEDS: Famotidine 20 MG TABLET PO SCH ×2 (09:53→22:15)
[2021-03-28] MEDS: Magnesium Oxide 400 MG TABLET PO SCH (09:53)
[2021-03-28] MEDS: QUEtiapine Fumarate 25 MG TABLET PO SCH ×2 (09:53→22:15)
[2021-03-28] MEDS: *HR* Buprenorphine HCl 8 MG TAB.SUBL SL SCH ×2 (09:53→22:15)
[2021-03-28] MEDS: Clobetasol Propionate 0.05% 15 GM Cream Tube TP SCH ×2 (09:54→22:21)
[2021-03-28] MEDS: Ertapenem 1,000 MG in 0.9 % Sodium Chloride Mini Bag 100 ML IVPB SCH (09:54)
[2021-03-28] MEDS: Budesonide/Formoterol 160/4.5 1 PUFF INH IH SCH ×3 (11:26→21:35)
[2021-03-28] MEDS: Nicotine 21 MG PATCH.TD24 TD SCH (12:02)
[2021-03-28] MEDS: DAPTOmycin 300 MG in 0.9 % Sodium Chloride 100 ML IVPB SCH (17:49)
[2021-03-29] MEDS: Ertapenem 1,000 MG in 0.9 % Sodium Chloride Mini Bag 100 ML IVPB SCH (08:32)
[2021-03-29] MEDS: Famotidine 20 MG TABLET PO SCH ×2 (08:33→21:16)
[2021-03-29] MEDS: Clobetasol Propionate 0.05% 15 GM Cream Tube TP SCH ×2 (08:33→21:17)
[2021-03-29] MEDS: Magnesium Oxide 400 MG TABLET PO SCH (08:33)
[2021-03-29] MEDS: *HR* Buprenorphine HCl 8 MG TAB.SUBL SL SCH ×2 (08:33→21:16)
[2021-03-29] MEDS: QUEtiapine Fumarate 25 MG TABLET PO SCH ×2 (08:33→21:16)
[2021-03-29 09:11] LABS: Hematocrit 31.5 % (35.3-44.9); Hemoglobin 10.3 g/dL (11.5-15.4); Mean Corpuscular HGB Conc 32.7 g/dL (31.6-35.5); Mean Corpuscular Hemoglobin 30.5 pg (28.0-33.3); Mean Corpuscular Volume 93.2 fL (83.0-100.0); Mean Platelet Volume 10.7 fL (9.4-12.4); Platelet Count 210 K/mcL (140-400); Red Blood Count 3.38 M/mcL (3.82-4.97); Red Cell Distribution Width 15.2 % (11.5-14.5)
[2021-03-29 09:12] LABS: White Blood Count 8.8 K/mcL (4.3-11.1)
[2021-03-29 09:16] LABS: BUN/Creatinine Ratio 24 (6-26); Blood Urea Nitrogen 17 mg/dL (6-20); Carbon Dioxide 26 mEq/L (23-29); Chloride 104 mEq/L (98-107); Glucose 104 mg/dL (70-105); Magnesium 1.7 mg/dL (1.6-2.6); Osmolality,Calculated 288 (280-300); Potassium 3.8 mEq/L (3.5-5.1); Sodium 138 mEq/L (136-145); eGFR For African Americans > 60 (> 60); eGFR For Non-African Americans > 60 (> 60)
[2021-03-29] MEDS: Budesonide/Formoterol 160/4.5 1 PUFF INH IH SCH ×2 (10:57→23:44)
[2021-03-29] MEDS: Nicotine 21 MG PATCH.TD24 TD SCH (10:57)
[2021-03-29] MEDS: DAPTOmycin 300 MG in 0.9 % Sodium Chloride 100 ML IVPB SCH (17:37)
[2021-03-30 07:21] LABS: ANA IgG by ELISA NONE DETECTED (None Detected)
[2021-03-30] MEDS: Famotidine 20 MG TABLET PO SCH ×2 (07:56→21:27)
[2021-03-30] MEDS: QUEtiapine Fumarate 25 MG TABLET PO SCH ×2 (07:56→21:27)
[2021-03-30] MEDS: Magnesium Oxide 400 MG TABLET PO SCH (07:56)
[2021-03-30] MEDS: *HR* Buprenorphine HCl 8 MG TAB.SUBL SL SCH ×2 (07:56→21:27)
[2021-03-30] MEDS: Nicotine 21 MG PATCH.TD24 TD SCH (07:57)
[2021-03-30] MEDS: Ertapenem 1,000 MG in 0.9 % Sodium Chloride Mini Bag 100 ML IVPB SCH (07:57)
[2021-03-30] MEDS: Clobetasol Propionate 0.05% 15 GM Cream Tube TP SCH ×2 (07:57→21:29)
[2021-03-30] MEDS: DAPTOmycin 300 MG in 0.9 % Sodium Chloride 100 ML IVPB SCH (17:57)
[2021-03-30] MEDS: Budesonide/Formoterol 160/4.5 1 PUFF INH IH SCH ×2 (17:58→21:17)
[2021-03-31] MEDS: Budesonide/Formoterol 160/4.5 1 PUFF INH IH SCH ×2 (08:30→22:17)
[2021-03-31] MEDS: Ertapenem 1,000 MG in 0.9 % Sodium Chloride Mini Bag 100 ML IVPB SCH (08:35)
[2021-03-31] MEDS: QUEtiapine Fumarate 25 MG TABLET PO SCH ×2 (08:36→20:25)
[2021-03-31] MEDS: Famotidine 20 MG TABLET PO SCH ×2 (08:36→20:25)
[2021-03-31] MEDS: *HR* Buprenorphine HCl 8 MG TAB.SUBL SL SCH ×2 (08:37→20:25)
[2021-03-31] MEDS: Nicotine 21 MG PATCH.TD24 TD SCH (08:37)
[2021-03-31] MEDS: Magnesium Oxide 400 MG TABLET PO SCH (08:37)
[2021-03-31] MEDS: DAPTOmycin 300 MG in 0.9 % Sodium Chloride 100 ML IVPB SCH (16:30)
[2021-03-31] MEDS: Clobetasol Propionate 0.05% 15 GM Cream Tube TP SCH (20:26)
[2021-04-01] MEDS: Clobetasol Propionate 0.05% 15 GM Cream Tube TP SCH ×2 (07:32→09:29)
[2021-04-01] MEDS: QUEtiapine Fumarate 25 MG TABLET PO SCH (09:28)
[2021-04-01] MEDS: *HR* Buprenorphine HCl 8 MG TAB.SUBL SL SCH (09:28)
[2021-04-01] MEDS: Ertapenem 1,000 MG in 0.9 % Sodium Chloride Mini Bag 100 ML IVPB SCH (09:28)
[2021-04-01] MEDS: Famotidine 20 MG TABLET PO SCH (09:28)
[2021-04-01] MEDS: Magnesium Oxide 400 MG TABLET PO SCH (09:28)
[2021-04-01] MEDS: Nicotine 21 MG PATCH.TD24 TD SCH (09:29)
[2021-04-01] MEDS: Budesonide/Formoterol 160/4.5 1 PUFF INH IH SCH (11:54)
[2021-04-01 14:33] LABS: Influenza A PCR Negative (Negative); Influenza B PCR Negative (Negative); Resp. Syncytial Virus PCR Negative (Negative)
[2021-04-01 15:20] LABS: SARS-CoV-2 by PCR (In House) Negative (Negative)
[2021-04-01 16:44] VITALS: BP 109/63; PULSE 82; TEMP 97.9; O2SAT 98
== END 2021-04-01 18:36 | DRG 385 ==
LOC: 4WAOSI → SUATTDRO 13:01 → 4WAOSI 03-27 21:21
PROVIDERS: ADMIT Internal Medicine; ATTEND Internal Medicine